=== PATIENT | male | born 1950 | race Two or more races ===

== ENCOUNTER 2024-09-05 10:45 | Outpatient (CLI) | payer OTHER ==
[~2024-09-05 10:45] MED LIST: CELEBREX100 MG PO; NORFLEX30 MG/ML IJ
== END 2024-09-05 10:46 | disposition home or self-care (01) ==
LOC: NUCLEAR 10:45
DX: R55 Syncope and collapse (principal)

== ENCOUNTER 2024-09-14 10:50 | Outpatient (CLI) | payer OTHER | END 2024-09-14 10:51 | disposition home or self-care (01) | LOC: NUCLEAR 10:50 | DX: I65.21 Occlusion and stenosis of right carotid artery (principal); I65.22 Occlusion and stenosis of left carotid artery; R55 Syncope and collapse ==